=== PATIENT | female | born 2005 | race African-American/Black ===

== ENCOUNTER 2024-03-24 23:33 | Emergency (ER) | payer BC, MEDICAID, OTHER ==
[2024-03-24] MEDS ORDERED: NEOMYCIN-POLYMYXIN-HC EAR SUSP 200 DROP/10 ML BOT ONE (23:56)
== END 2024-03-25 00:30 | disposition home or self-care (01) ==
LOC: BURERS 23:33
DX: H60.502 Unspecified acute noninfective otitis externa, left ear (principal)
CPT/HCPCS: 99282

== ENCOUNTER 2024-04-04 19:02 | Emergency (ER) | payer BC, OTHER | END 2024-04-04 19:43 | disposition home or self-care (01) | LOC: BURERS 19:02 | DX: J06.9 Acute upper respiratory infection, unspecified (principal); Z55.6 Problems related to health literacy | CPT/HCPCS: 99283 ==